=== PATIENT | female | born 1965 | race Caucasian/White ===

== ENCOUNTER → 2021-05-13 | Outpatient (CLI) | payer OTHER ==
[~2021-05-13] MED LIST: ACET500C OR; ALBUTEROL INH; ALLE25CA OR; AMBI10TA OR; ATIV0.5T OR; BUPR15TA OR; CALCCHW12 OR; HYDR25TA6 OR; IMODIUM PO; IRON28TA OR; MELOPOW PO; MULTIVIT PO; NEUR100C OR; PEPT525S OR; PERC5TAB8 OR; SKEL800T5 OR; SPIR1CAP INH; SUDA30TA OR; TRAM50TA2 OR; VALARIAN ROOT PO; VIT D 4000 PO; VITA-113 SL; VITA500T OR; ZEBE1TAB OR; ZINC220T2 PO; [UNRECOGNIZED DRUG - OTHER] PO
--- NOTE | 2021-05-13 16:10 | REPMRS ---
Patient History The patient states she has not had a clinical breast exam in over a year. Patient is postmenopausal. No known family history of cancer. Took hormonal contraceptives for 1 year. Moderna vaccine 07/05/20 left arm. 08/02/20 left arm. Patient states no breast complaints today. Patient has signed MRS History Sheet. Digital Woman Screen Mammo: May 13, 2021 - Exam #: [id number] Bilateral CC and MLO view(s) were taken. Technologist: RT Magan FINDINGS: There are scattered fibroglandular densities. Screening. Digital screening (2D) mammography was performed bilaterally in the CC and MLO projections. Additionally, breast tomosynthesis (3D mammography) was performed bilaterally in the CC and MLO projections. Todays exam was compared to the prior exam/exams. By history, the patient has no complaints of a palpable breast abnormality or other significant breast complaints. The Volpara volumetric breast density category is B, there are scattered areas of fibroglandular densities. The breasts are unchanged in size and shape. There are no marilou-soft tissue densities or spiculated masses. There is no internal architectural distortion. There are no suspicious marilou-calcific clusters. Skin thickening or nipple retraction is not present. IMPRESSION: BI-RADS Category 2- Benign Findings. There is no evidence of malignant alteration of the breasts. Followup examination recommended in one year. The lifetime Tyrer-Cuzick score is 9.7% This mammogram was read with the assistance of [employer],an FDA approved computer aided detection system for mammography. Negative x-ray reports should not delay surgical consultation if a dominant or clinically suspicious mass is present. Not all breast cancers can be identified by mammography. Therefore, we recommend that you continue to perform regular breast self-examination and physical examination and then promptly contact your physician of any concerns or changes. Adenosis and dense breasts may obscure an underlying neoplasm. Assessment: BI-RADS/ACR category 2 mammogram. Benign Findings. Recommendation Routine screening mammogram of both breasts in 1 year. Electronically Signed By: Jourdan Hawley MD 05/13/21 1886
== END ==
LOC: M WHC 12:39
PROVIDERS: ATTEND Pediatrics
DX: Z13.228 Encounter for screening for other metabolic disorders (principal); Z12.31 Encounter for screening mammogram for malignant neoplasm of breast

== ENCOUNTER → 2022-08-03 | Outpatient (CLI) | payer OTHER | LOC: M CARPUL 09:08 | PROVIDERS: ATTEND Pediatrics | DX: R01.1 Cardiac murmur, unspecified (principal) ==

== ENCOUNTER → 2022-09-01 | Outpatient (CLI) | payer OTHER ==
[~2022-09-01] MED LIST changes: +ACET650T61 PO; +ALEN70TA82 PO; +ARIP10TA32 PO; +B-12100010 PO; +BUSP10TA PO; +CARV6.25 PO; +CHLO125TA PO; +D31000CA4 PO; +GUAN1TAB19 PO; +IBUP80TA PO; +LOSA100T45 PO; +MELA10CA2 PO; +OMEP-173 PO; +PARO40TA2 PO; +PRAZ1CAP PO; +QUET100T2 PO; +VYVA50CA4 PO
== END ==
LOC: M LABSMTC 11:20
PROVIDERS: ATTEND Anesthesiology
DX: Z01.818 Encounter for other preprocedural examination (principal); Z11.52 Encounter for screening for COVID-19

== ENCOUNTER 2022-09-04 08:31 | Day surgery (SDC) | payer OTHER ==
[~2022-09-04] VITALS: Ht 160 cm; Wt 83.8 kg
[~2022-09-04 08:31] MED LIST changes: +NS 1,000 ML IV ONE
[2022-09-04 11:02] VITALS: BP 137/65
[2022-09-04] MEDS ORDERED: LIDOCAINE 2% 100MG/5ML SDV (FOR ANES.) As Ordered ONE (12:05)
[2022-09-04] MEDS ORDERED: fentaNYL 100 MCG/2 ML INJECTION As Ordered ONE (12:05)
[2022-09-04] MEDS ORDERED: propofoL 500 MG/50 ML VIAL As Ordered ONE (12:05)
== END 2022-09-04 11:26 | disposition home or self-care (01) ==
LOC: M OPP 08:31
PROVIDERS: ATTEND Surgery
DX: Z12.11 Encounter for screening for malignant neoplasm of colon (principal); D12.3 Benign neoplasm of transverse colon; K57.30 Diverticulosis of large intestine without perforation or abscess without bleeding; K28.9 Gastrojejunal ulcer, unspecified as acute or chronic, without hemorrhage or perforation; K44.9 Diaphragmatic hernia without obstruction or gangrene; K30 Functional dyspepsia; Z98.84 Bariatric surgery status; D50.9 Iron deficiency anemia, unspecified; J45.909 Unspecified asthma, uncomplicated; F17.200 Nicotine dependence, unspecified, uncomplicated; Z79.1 Long term (current) use of non-steroidal anti-inflammatories (NSAID); Z79.899 Other long term (current) drug therapy
CPT/HCPCS: 43239; 45385; 88305; J3010

== ENCOUNTER → 2023-02-26 | Outpatient (REF) | payer OTHER, MEDICAID ==
[~2023-02-26] MED LIST changes: -LOSA100T45 PO; +LOSA100T46 PO; -NS 1,000 ML IV ONE
[2023-02-26 19:05] LABS: BLOOD UREA NITROGEN 10 MG/DL (9-23); CALCIUM LEVEL 8.1 MG/DL (8.5-10.1); CARBON DIOXIDE LEVEL 26 MMOL/L (20-31); CHLORIDE LEVEL 105 MMOL/L (98-107); CREATININE FOR GFR 0.77 MG/DL (0.55-1.30); FERRITIN 4.1 NG/ML (7.3-270.7); FOLATE 4.5 NG/ML (>5.4); GLOMERULAR FILTRATION RATE > 60.0 (>51); GLUCOSE, FASTING 79 MG/DL (60-100); IRON (FE) 15 UG/DL (50-170); PERCENT SATURATION 3.5 % (13.2-45.0); POTASSIUM SERUM 4.7 MMOL/L (3.5-5.1); SODIUM LEVEL 137 MMOL/L (136-145); THYROID STIMULATING HORMONE 1.481 uIU/ML (0.55-4.78); TOTAL IRON BINDING CAPACITY 432 UG/DL (250-425)
[2023-02-26 19:07] LABS: BASO # 0.1 10^3/uL (0.0-0.2); BASO % 0.9 % (0.0-1.0); EOS # 0.2 10^3/uL (0.0-0.5); EOS % 3.2 % (0.0-3.0); HEMATOCRIT 29.3 % (36.0-47.0); HEMOGLOBIN 8.9 g/dl (12.0-15.5); LYMPH # 1.7 10^3/uL (1.5-5.0); LYMPH % 22.3 % (24.0-44.0); MEAN CORPUSCULAR HEMOGLOBIN 27.1 pg (27.0-33.0); MEAN CORPUSCULAR HGB CONC 30.4 g/dl (32.0-36.5); MEAN CORPUSCULAR VOLUME 89.1 fl (80.0-96.0); MONO # 0.8 10^3/uL (0.0-0.8); MONO % 10.6 % (2.0-8.0); NEUTROPHILS # 4.8 10^3/uL (1.5-8.5); NEUTROPHILS % 62.7 % (36.0-66.0); PLATELET COUNT, AUTOMATED 386 10^3/uL (150-450); RED BLOOD COUNT 3.29 10^6/uL (4.00-5.40); VITAMIN B12 LEVEL 1205 PG/ML (211-911); WHITE BLOOD COUNT 7.6 10^3/uL (4.0-10.0)
== END ==
LOC: M LAB REF 16:21
PROVIDERS: ATTEND Pediatrics
DX: I10 Essential (primary) hypertension (principal); M81.0 Age-related osteoporosis without current pathological fracture; Z98.84 Bariatric surgery status

== ENCOUNTER → 2023-05-17 | Outpatient (CLI) | payer OTHER | LOC: M WHC 12:58 | PROVIDERS: ATTEND Pediatrics | DX: Z13.820 Encounter for screening for osteoporosis (principal); M81.0 Age-related osteoporosis without current pathological fracture ==

== ENCOUNTER → 2023-05-28 | Outpatient (CLI) | payer OTHER | LOC: M WHC 09:56 | PROVIDERS: ATTEND Pediatrics | DX: Z12.31 Encounter for screening mammogram for malignant neoplasm of breast (principal) ==

== ENCOUNTER → 2023-08-27 | Outpatient (REF) | payer OTHER, MEDICAID ==
[2023-08-27 17:49] LABS: BASO # 0.1 10^3/uL (0.0-0.2); BASO % 0.5 % (0.0-1.0); EOS # 0.3 10^3/uL (0.0-0.5); EOS % 3.6 % (0.0-3.0); HEMATOCRIT 34.5 % (36.0-47.0); HEMOGLOBIN 11.6 g/dl (12.0-15.5); LYMPH # 2.4 10^3/uL (1.5-5.0); MEAN CORPUSCULAR HEMOGLOBIN 33.2 pg (27.0-33.0); MEAN CORPUSCULAR HGB CONC 33.6 g/dl (32.0-36.5); MEAN CORPUSCULAR VOLUME 98.9 fl (80.0-96.0); MONO # 0.9 10^3/uL (0.0-0.8); MONO % 9.2 % (2.0-8.0); NEUTROPHILS # 5.6 10^3/uL (1.5-8.5); NEUTROPHILS % 60.1 % (36.0-66.0); PLATELET COUNT, AUTOMATED 409 10^3/uL (150-450); RED BLOOD COUNT 3.49 10^6/uL (4.00-5.40); WHITE BLOOD COUNT 9.3 10^3/uL (4.0-10.0)
[2023-08-27 18:08] LABS: ALBUMIN 3.3 G/DL (3.2-5.2); ALKALINE PHOSPHATASE 67 U/L (46-116); ALT/SGPT 18 U/L (7.0-40); AST/SGOT 11 U/L (<34); BILIRUBIN,TOTAL 0.2 MG/DL (0.3-1.2); BLOOD UREA NITROGEN 19 MG/DL (9-23); CALCIUM LEVEL 8.6 MG/DL (8.5-10.1); CARBON DIOXIDE LEVEL 28 MMOL/L (20-31); CHLORIDE LEVEL 102 MMOL/L (98-107); GLOMERULAR FILTRATION RATE > 60.0 (>51); GLUCOSE, FASTING 83 MG/DL (60-100); IRON (FE) 68 UG/DL (50-170); PERCENT SATURATION 20.4 % (13.2-45.0); POTASSIUM SERUM 4.4 MMOL/L (3.5-5.1); SODIUM LEVEL 132 MMOL/L (136-145); TOTAL IRON BINDING CAPACITY 334 UG/DL (250-425); TOTAL PROTEIN 5.5 G/DL (5.7-8.2)
== END ==
LOC: M LAB REF 16:53
PROVIDERS: ATTEND Pediatrics
DX: D50.9 Iron deficiency anemia, unspecified (principal); M18.0 Bilateral primary osteoarthritis of first carpometacarpal joints

== ENCOUNTER → 2024-04-14 | Outpatient (REF) | payer MEDICAID, OTHER, SELFPAY ==
[~2024-04-14] MED LIST changes: -ARIP10TA32 PO; +ARIP10TA63 PO
[2024-04-14 18:01] LABS: BASO # 0.1 10^3/uL (0.0-0.2); BASO % 0.6 % (0.0-1.0); EOS # 0.4 10^3/uL (0.0-0.5); EOS % 4.3 % (0.0-3.0); HEMATOCRIT 36.7 % (36.0-47.0); HEMOGLOBIN 12.3 g/dl (12.0-15.5); LYMPH # 2.5 10^3/uL (1.5-5.0); LYMPH % 28.3 % (24.0-44.0); MEAN CORPUSCULAR HEMOGLOBIN 33.1 pg (27.0-33.0); MEAN CORPUSCULAR HGB CONC 33.5 g/dl (32.0-36.5); MEAN CORPUSCULAR VOLUME 98.7 fl (80.0-96.0); MONO # 0.8 10^3/uL (0.0-0.8); MONO % 9.2 % (2.0-8.0); NEUTROPHILS % 56.9 % (36.0-66.0); PLATELET COUNT, AUTOMATED 335 10^3/uL (150-450); RED BLOOD COUNT 3.72 10^6/uL (4.00-5.40); WHITE BLOOD COUNT 8.8 10^3/uL (4.0-10.0)
[2024-04-14 18:13] LABS: THYROID STIMULATING HORMONE 0.701 uIU/ML (0.55-4.78); TOTAL 25(OH) VITAMIN D 40.5 NG/ML (20.0-100.0)
[2024-04-14 18:17] LABS: IRON (FE) 86 UG/DL (50-170)
[2024-04-14 18:19] LABS: PERCENT SATURATION 26.4 % (13.2-45.0); TOTAL IRON BINDING CAPACITY 326 UG/DL (250-425)
[2024-04-14 18:20] LABS: ALBUMIN 3.4 G/DL (3.2-5.2); ALKALINE PHOSPHATASE 67 U/L (46-116); ALT/SGPT 18 U/L (7.0-40); AST/SGOT < 8 U/L (<34); BILIRUBIN,TOTAL 0.2 MG/DL (0.3-1.2); BLOOD UREA NITROGEN 21 MG/DL (9-23); CALCIUM LEVEL 8.8 MG/DL (8.5-10.1); CARBON DIOXIDE LEVEL 27 MMOL/L (20-31); CHLORIDE LEVEL 108 MMOL/L (98-107); CREATININE FOR GFR 0.93 MG/DL (0.55-1.30); GLOMERULAR FILTRATION RATE > 60.0 (>51); GLUCOSE, FASTING 97 MG/DL (60-100); POTASSIUM SERUM 4.3 MMOL/L (3.5-5.1); SODIUM LEVEL 137 MMOL/L (136-145); TOTAL PROTEIN 5.8 G/DL (5.7-8.2)
== END ==
LOC: M LAB REF 16:21
PROVIDERS: ATTEND Pediatrics
DX: I10 Essential (primary) hypertension (principal); D50.9 Iron deficiency anemia, unspecified; M81.0 Age-related osteoporosis without current pathological fracture

== ENCOUNTER → 2024-08-25 | Outpatient (REF) | payer SELFPAY ==
[2024-08-25 14:18] LABS: CREATININE, URINE 122.4 MG/DL; MALB URINE SIEMENS < 3.0 MG/L
[2024-08-25 14:58] LABS: CHOLESTEROL RISK RATIO 2.1 (<5); HDL CHOLESTEROL 80.1 MG/DL (>40); LDL CHOLESTEROL 72.1 MG/DL (<100); NON-HDL-C 88.9 MG/DL
[2024-08-25 15:01] LABS: FOLATE 13.4 NG/ML (>5.4)
== END ==
LOC: M LAB REF 12:29
PROVIDERS: ATTEND Pediatrics
DX: I10 Essential (primary) hypertension (principal); K91.2 Postsurgical malabsorption, not elsewhere classified

== ENCOUNTER → 2024-09-29 | Outpatient (CLI) | payer BC | LOC: M RAD 15:39 | PROVIDERS: ATTEND Pediatrics | DX: R91.1 Solitary pulmonary nodule (principal); I77.810 Thoracic aortic ectasia ==

== ENCOUNTER → 2025-01-15 | Outpatient (CLI) | payer BC ==
[~2025-01-15] MED LIST changes: +CVS10CAP8 PO; -MELA10CA2 PO
== END ==
LOC: M WUC 08:05
PROVIDERS: ATTEND Pediatrics
DX: M54.50 Low back pain, unspecified (principal)

== ENCOUNTER → 2025-01-17 | Outpatient (CLI) | payer BC | LOC: M RAD 10:24 | PROVIDERS: ATTEND Pediatrics | DX: I70.0 Atherosclerosis of aorta (principal); Z82.49 Family history of ischemic heart disease and other diseases of the circulatory system ==

== ENCOUNTER → 2025-05-18 | Outpatient (CLI) | payer BC | LOC: M WHC 09:02 | PROVIDERS: ATTEND Pediatrics | DX: Z12.31 Encounter for screening mammogram for malignant neoplasm of breast (principal); M81.0 Age-related osteoporosis without current pathological fracture; R92.323 Mammographic fibroglandular density, bilateral breasts ==